=== PATIENT | male | born 1970 | race African-American/Black ===

== ENCOUNTER 2024-12-09 09:31 | Emergency (ER) | payer BC ==
[~2024-12-09] VITALS: Ht 182.9 cm; Wt 77.1 kg
[2024-12-09 09:38] VITALS: BP 138/88; RESP 16; TEMP 98.5; O2SAT 98
[2024-12-09 09:40] VITALS: PULSE 90; O2SAT 100
[2024-12-09] MEDS ORDERED: CELE-116 MT (10:23)
[2024-12-09] MEDS ORDERED: CYCL5TAB3 MT (10:23)
== END 2024-12-09 14:25 | disposition home or self-care (01) ==
LOC: ER 09:31
DX: T14.8XXA Other injury of unspecified body region, initial encounter (principal); Z98.890 Other specified postprocedural states; X58.XXXA Exposure to other specified factors, initial encounter; Y93.89 Activity, other specified; Y92.89 Other specified places as the place of occurrence of the external cause; Y99.8 Other external cause status
CPT/HCPCS: 99283